=== PATIENT | female | born 1945 | race Caucasian/White ===

== ENCOUNTER 2017-01-30 02:19 | Emergency (ER) | payer BC ==
[~2017-01-30] VITALS: Ht 157.5 cm; Wt 54.4 kg
[2017-01-30] MEDS ORDERED: MORPHINE SULFATE 4 MG/ML CPJ (NOT FOR IM USE) IV STA (02:51)
[2017-01-30] MEDS ORDERED: FAMOTIDINE 20MG/2ML VIAL IV STA (02:51)
[2017-01-30] MEDS ORDERED: SODIUM CHLORIDE 0.9% 1,000 ML IV ONE (02:51)
[2017-01-30] MEDS ORDERED: ONDANSETRON HCL 4MG/2ML VIAL IV STA (02:51)
[2017-01-30 03:35] LABS: BASOPHILS % 0.4 % (0.0-2.0); HEMATOCRIT. 38.1 % (36.0-48.0); HEMOGLOBIN. 12.6 g/dL (12.0-16.0); LYMPHOCYTES % 17.7 % (20.0-50.0); MEAN CORPUSCULAR VOLUME 93.6 fL (81.0-99.0); MEAN PLATELET VOLUME 8.3 fl (7.4-10.4); MONOCYTES % 8.7 % (2.0-8.0); NEUTROPHILS % 72.2 % (40.0-76.0); PLATELET 164 x1000/uL (130-400); RED BLOOD CELL COUNT 4.07 mill/uL (4.2-5.4); RED CELL DISTRIBUTION WIDTH 13.5 % (11.6-14.6)
[2017-01-30 03:38] LABS: PROTHROMBIN TIME 10.8 sec (9.4-11.6)
[2017-01-30 03:47] LABS: CARBON DIOXIDE 29 mEq/L (21-32); CHLORIDE 107 mEq/L (98-107); TROPONIN I < 0.02 ng/mL (0.00-0.04)
[2017-01-30 04:08] LABS: GLUCOSE URINE NEGATIVE (NEGATIVE); KETONES URINE NEGATIVE (NEGATIVE); LEUKOCYTE ESTERASE URINE 3+ (NEGATIVE); NITRITE URINE NEGATIVE (NEGATIVE); OCCULT BLOOD URINE 1+ (NEGATIVE); PROTEIN URINE NEGATIVE (NEGATIVE); SPECIFIC GRAVITY URINE 1.011 (1.005-1.030); UROBILINOGEN URINE 0.2 E.U./dL (0.2-1.0)
[2017-01-30 04:10] LABS: CLARITY URINE HAZY (CLEAR); COLOR URINE YELLOW (YELLOW)
[2017-01-30] MEDS ORDERED: IOHEXOL-300 100 ML BOTTLE ONE (06:00)
[2017-01-30] MEDS ORDERED: SODIUM CHLORIDE 0.9% 10ML VIAL ONE (06:00)
[2017-01-30 06:46] VITALS: BP 135/79
== END 2017-01-30 06:48 | disposition home or self-care (01) ==
LOC: ER 02:19 → CANBEDREQ 07:35
DX: T62.91XA Toxic effect of unspecified noxious substance eaten as food, accidental (unintentional), initial encounter (principal); Y92.89 Other specified places as the place of occurrence of the external cause; N39.0 Urinary tract infection, site not specified; N28.1 Cyst of kidney, acquired; J98.11 Atelectasis; K76.89 Other specified diseases of liver; F17.210 Nicotine dependence, cigarettes, uncomplicated; Z71.6 Tobacco abuse counseling
CPT/HCPCS: 36415; 71010; 74177; 80053; 81001; 83605; 83690; 84484; 85025; 85610; 93005; 96361; 96374; 96375; 99285; A4216; J2270; J2405; J3490; J7030; Q9967